=== PATIENT | female | born 1975 | race African-American/Black ===

== ENCOUNTER 2019-06-28 08:05 | Emergency (ER) | payer SELFPAY ==
--- NOTE | ~2019-06-28 | CT_ITS ---
EXAMINATION: CT brain wo con, CT cervical spine wo con EXAM DATE: 06/28/2019 10:32 (accession [id number]), 06/28/2019 10:33 (accession [id number]) INDICATION: Headache, posterior head pain, neck pain, fall. TECHNIQUE: Spiral CT of the head was performed without contrast. Axial, coronal and sagittal images were reviewed. Spiral CT of the cervical spine was performed without contrast. Axial images were rev iewed. Coronal and sagittal reformatted images were also reviewed. The dose-length product (DLP) fo r this examination was 605.33 (accession [id number]), 507.27 (accession [id number]) mGy-cm. The exposure was tailored according to patient size, and iterative reconstruction (ASIR) was used as additional dose reduction technique. There is no prior study for comparison. FINDINGS: HEAD CT: There is no acute intraparenchymal hemorrhage. No evidence of intraparenchymal brain mass l esion. No evidence of acute infarction. There is no mass effect or midline shift. There is no obstru ctive hydrocephalus suspected. There are no extra-axial collections. There are no acute calvarial f ractures. The orbits are unremarkable. Soft tissue is unremarkable. The visualized sinuses and mas toid air cells are well aerated. CERVICAL CT: There is no evidence of acute cervical fracture. The odontoid process is intact. Pre- dens space is normal. Prevertebral soft tissue is normal. There are no soft tissue abnormalities id entified. There is no disc space widening or traumatic vertebral body subluxation suspected. Verteb ral body and disc heights are well-maintained. A detailed level by level evaluation of spondylosis can be added as addendum if requested. IMPRESSION: 1. No acute intracranial or cervical findings. Reviewed, dictated and finalized at location B. AND SPIRITS CLERK IMPRESSION: 1. No acute intracranial or cervical findings.
--- NOTE | ~2019-06-28 | CT_ITS ---
EXAMINATION: CT thoracic lumbar wo con EXAM DATE: 06/28/2019 10:34 INDICATION: Back pain. Fell 2 weeks ago. TECHNIQUE: Spiral CT thoracic and lumbar spine was performed without contrast. Axial, coronal and sag ittal images of the thoracic spine were reviewed. Axial, coronal and sagittal images of the lumbar sp ine were reviewed. The dose-length product (DLP) for this examination was 1899.54 mGy-cm. The expos ure was tailored according to patient size (auto mA exposure control), and iterative reconstruction ( ASIR) was used as additional dose reduction technique. There is no prior study for comparison. FINDINGS: Thoracic spine: There are no acute fractures identified. The vertebral bodies are aligned in the AP d imension. Mild mid and lower thoracic disc disease. Thoracic central canal and neural foramen are pat ent. Paraspinal soft tissue is unremarkable. Lumbar spine: There is no evidence of acute lumbar fracture or spondylolysis. There is no disc space widening or traumatic vertebral body subluxation suspected. Paraspinal soft tissue is unremarkable. Vertebral body and disc heights are well-maintained. There is moderate to severe disc disease L5- S1, moderate to severe bilateral facet arthropathy and bilateral neural foraminal stenosis. Moderate central canal stenosis at this level. L4-5 has moderate to severe facet arthropathy, central canal a nd right neural foraminal stenosis. IMPRESSION: 1. No acute thoracolumbar fracture. 2. Advanced lower lumbar arthropathy, L5-S1 disc disease. Reviewed, dictated and finalized at location B. ING MACHINE OPERATOR
[2019-06-28 08:24] VITALS: BP 153/90; PULSE 57; RESP 18; TEMP 36.4; O2SAT 100
--- NOTE | 2019-06-28 08:45 | ED.BACK ---
HPI - Back Pain/Injury General Chief Complaint: Back Pain/Injury Stated Complaint: Head/Eye Pain Time Seen by Provider: 06/28/19 08:40 Source: patient and RN notes reviewed Mode of arrival: ambulatory Limitations: no limitations History of Present Illness HPI Narrative: Pt is a 44 y/o female who presents to the ED with c/o low back pain starting 2 weeks ago. She notes that she slipped and fell backwards roughly 2 weeks ago, and states that she has had pain in her lower back and posterior neck ever since. Pt also reports a retro-orbital headache, intermittent blurry vision, and tingling in her bilateral hands since the fall. She states that light aggravates her headache. She denies any redness or discharge from her eyes, CP, ABD pain, dysuria, abnormal gait, or bowel/urinary incontinence. Pt states that she has been taking Ibuprofen for her pain. MD elicited complaint: back pain Pertinent past history: other (recent fall) Onset (ago): week(s) (2) Location: lumbar spine Context: fall Associated symptoms: other (posterior neck pain; retro-orbital headache; blurry vision; tingling in bilateral hands) Treatments prior to arrival: NSAIDS (Ibuprofen) Related Data Home Medications Medication Instructions Recorded Confirmed No Home Medications 06/28/19 06/28/19 Allergies Allergy/AdvReac Type Severity Reaction Status Date / Time No Known Allergies Allergy Verified 06/28/19 08:33 Review of Systems Review of Systems: Narrative: CONSTITUTIONAL: Denies fever, chills, or sweats. EYES: Denies redness or discharge. Reports blurry vision. CARDIOVASCULAR: Denies chest pain, palpitations, or edema. RESPIRATORY: Denies cough or dyspnea. GASTROINTESTINAL: Denies abdominal pain, nausea, vomiting, or diarrhea. Denies bowel incontinence. GENITOURINARY: Denies dysuria or hematuria. Denies urinary incontinence. MUSCULOSKELETAL: Reports low back pain and posterior neck pain. Denies joint pain. NEUROLOGIC: Denies numbness, weakness, or abnormal gait. Reports retro-orbital headache and tingling in bilateral hands. All systems reviewed & are unremarkable except as noted in HPI and below PMFSH Past Medical History Medical History Healthy female adult Surgical History Surgical History No significant past surgical history Social History Social History Smoking status: Never smoker Gender identity (if verbalized by the patient): Female Exam Narrative: Exam Narrative: GENERAL: Well-appearing, well-nourished, and in no acute distress. HEAD: Normocephalic, atraumatic. EYES: PERRLA and EOMI. ENT: Nares clear, no rhinorrhea or epistaxis. Mucous membranes moist. NECK: Supple. CHEST: Clear to auscultation. No respiratory distress. HEART: Regular rate and rhythm. No murmur heard. Normal peripheral pulses. ABDOMEN: Soft, nontender, nondistended, normal active bowel sounds. EXTREMITIES: Normal range of motion. No edema. SPINE: Mild midline cervical tenderness. Rt lumbar paraspinal tenderness. Rt SI joint tenderness. SKIN: Warm, dry, no rash. NEURO: No focal deficits. Alert and oriented. Course Vital Signs Vital signs: Vital Signs Temperature 36.4 C L 06/28/19 08:24 Pulse Rate 57 L 06/28/19 08:24 Respiratory Rate 18 06/28/19 08:24 Blood Pressure 153/90 H 06/28/19 08:24 Pulse Oximetry 100 06/28/19 08:24 Temperature 36.4 C L 06/28/19 08:24 Pulse Rate 57 L 06/28/19 08:24 Respiratory Rate 18 06/28/19 08:24 Blood Pressure 153/90 H 06/28/19 08:24 Pulse Oximetry 100 06/28/19 08:24 MDM - Back Pain/Injury Lab Data Labs: UCG Bedside Result Negative Reference Range: Negative Discharge Plan Discharge Prescriptions: No Action No Home Medications RF: 0
[2019-06-28] MEDS: IBUPROFEN 600 MG TABLET PO (09:57)
[2019-06-28] MEDS: ACETAMINOPHEN 500 MG TABLET 1000 MG PO (09:58)
--- NOTE | 2019-06-28 10:13 | PC.NURSE ---
Patient in radiology at this time.
[2019-06-28 10:40] VITALS: PULSE 50; RESP 16; O2SAT 100
--- NOTE | 2019-06-28 10:44 | ED.BACK ---
HPI - Back Pain/Injury General Chief Complaint: Back Pain/Injury Stated Complaint: Head/Eye Pain Time Seen by Provider: 06/28/19 08:40 Source: patient and RN notes reviewed Mode of arrival: ambulatory Limitations: no limitations History of Present Illness HPI Narrative: Pt is a 44 y/o female who presents to the ED with c/o low back pain starting 2 weeks ago. She notes that she slipped and fell backwards roughly 2 weeks ago, and states that she has had pain in her lower back and posterior neck ever since. Pt also reports a retro-orbital headache, intermittent blurry vision, and tingling in her bilateral hands since the fall. She states that light aggravates her headache. She denies any redness or discharge from her eyes, CP, ABD pain, dysuria, abnormal gait, or bowel/urinary incontinence. Pt states that she has been taking Ibuprofen for her pain. MD elicited complaint: back pain Onset (ago): week(s) (2) Location: lumbar spine Context: fall Associated symptoms: other (blurry vision; retro-orbital headache; tingling in bilateral hands; posterior neck pain) Treatments prior to arrival: NSAIDS (Ibuprofen) Related Data Allergies Allergy/AdvReac Type Severity Reaction Status Date / Time No Known Allergies Allergy Verified 06/28/19 08:33 Review of Systems Review of Systems: Narrative: CONSTITUTIONAL: Denies fever, chills, or sweats. EYES: Denies redness or discharge. Reports blurry vision. CARDIOVASCULAR: Denies chest pain, palpitations, or edema. RESPIRATORY: Denies cough or dyspnea. GASTROINTESTINAL: Denies abdominal pain, nausea, vomiting, or diarrhea. Denies bowel incontinence. GENITOURINARY: Denies dysuria or hematuria. Denies urinary incontinence. MUSCULOSKELETAL: Reports low back pain and posterior neck pain. Denies joint pain. NEUROLOGIC: Denies numbness, weakness, or abnormal gait. Reports retro-orbital headache and tingling in bilateral hands. All systems reviewed & are unremarkable except as noted in HPI and below PMFSH Past Medical History Medical History Healthy female adult Surgical History Surgical History No significant past surgical history Social History Social History Smoking status: Never smoker Gender identity (if verbalized by the patient): Female Exam Narrative: Exam Narrative: GENERAL: Well-appearing, well-nourished, and in no acute distress. HEAD: Normocephalic, atraumatic. EYES: PERRLA and EOMI. ENT: Nares clear, no rhinorrhea or epistaxis. Mucous membranes moist. NECK: Supple. CHEST: Clear to auscultation. No respiratory distress. HEART: Regular rate and rhythm. No murmur heard. Normal peripheral pulses. ABDOMEN: Soft, nontender, nondistended, normal active bowel sounds. EXTREMITIES: Normal range of motion. No edema. SPINE: Mild midline cervical tenderness. Rt lumbar paraspinal tenderness. Rt SI joint tenderness. SKIN: Warm, dry, no rash. NEURO: No focal deficits. Alert and oriented. Finger to nose intact bilaterally. EOMs intact without nystagmus. No facial droop/asymmetry noted bilaterally. Grimace intact. Intact sensation in face. Hearing intact bilaterally. Shoulder shrug intact. Strength 5/5 bilateral upper extremities. Strength 5/5 bilateral lower extremities. Reflexes 2+ patellar. Heel to gonzales intact bilaterally. Ambulatory with a narrow-based, steady gait. Course Vital Signs Vital signs: Vital Signs Temperature 36.4 C L 06/28/19 08:24 Pulse Rate 57 L 06/28/19 08:24 Respiratory Rate 18 06/28/19 08:24 Blood Pressure 153/90 H 06/28/19 08:24 Pulse Oximetry 100 06/28/19 08:24 Temperature 36.4 C L 06/28/19 08:24 Pulse Rate 50 L 06/28/19 10:40 Respiratory Rate 16 06/28/19 10:40 Blood Pressure 153/90 H 06/28/19 08:24 Pulse Oximetry 100 06/28/19 10:40 MDM - Back Pain/Injury MDM Narrative Medical decision making narrativ
== END 2019-06-28 12:48 | disposition home or self-care (01) ==
PROVIDERS: Emergency Provider Emergency Medicine
DX: S39.012A Strain of muscle, fascia and tendon of lower back, initial encounter (principal); S16.1XXA Strain of muscle, fascia and tendon at neck level, initial encounter; M51.17 Intervertebral disc disorders with radiculopathy, lumbosacral region; W01.0XXA Fall on same level from slipping, tripping and stumbling without subsequent striking against object, initial encounter
CPT/HCPCS: 70450; 72125; 72128; 72131; 81025; 99284; A9270